=== PATIENT | female | born 1970 | race Caucasian/White ===

== ENCOUNTER → 2016-10-02 | Outpatient (CLI) | payer OTHER | END | disposition home or self-care (01) | LOC: CFH 07:37 → EDSTATUS 08:00 | PROVIDERS: ATTEND Nurse Practitioner Family | DX: Z12.31 Encounter for screening mammogram for malignant neoplasm of breast (principal) | CPT/HCPCS: G0202 ==

== ENCOUNTER 2017-03-26 15:43 | Emergency (ER) | payer OTHER ==
[~2017-03-26] VITALS: Ht 160 cm; Wt 76.5 kg
[2017-03-26 16:27] VITALS: BP 110/70
[2017-03-26] MEDS ORDERED: FLUORESCEIN OPHTHALMIC 1 MG STRIP EACHEYE ONE (17:00)
[2017-03-26] MEDS ORDERED: PROPARACAINE OPHTH 0.5%, 15ML EACHEYE ONE (17:00)
[2017-03-26 18:28] LABS: BASOPHILS # (AUTO) 0.05 x10^3/uL (0-0.1); BASOPHILS % (AUTO) 1 % (0-1); EOSINOPHILS # (AUTO) 0.28 x10^3/uL (0-0.4); EOSINOPHILS % (AUTO) 4 % (1-7); LYMPHOCYTES # (AUTO) 2.96 x10^3/uL (1-3.4); LYMPHOCYTES % (AUTO) 45 % (22-44); MD NO; MEAN CORPUSCULAR HEMOGLOBIN 27.7 pg (27.0-34.8); MEAN CORPUSCULAR HGB CONC 33.3 g/dL (32.4-35.8); MEAN CORPUSCULAR VOLUME 83.1 fL (80-100); MEAN PLATELET VOLUME 7.5 fL (7.4-10.4); MONOCYTES # (AUTO) 0.28 x10^3/uL (0.2-0.8); MONOCYTES % (AUTO) 4 % (2-9); NEUTROPHILS # (AUTO) 3.04 x10^3/uL (1.8-6.8); NEUTROPHILS % (AUTO) 46 % (42-75); PLATELET COUNT 295 x10^3/uL (130-400); RED BLOOD COUNT 4.92 x10^6/uL (3.82-5.3)
[2017-03-26 18:29] LABS: HCT (SEDRATE) 40.6 % (34.6-47.8)
[2017-03-26 18:41] LABS: ALANINE AMINOTRANSFERASE 23 U/L (12-78); ANION GAP 6 mmol/L (5-15); CALCIUM 8.9 mg/dL (8.5-10.1); CHLORIDE 109 mmol/L (98-107); CREATININE 0.93 mg/dL (0.55-1.02)
[2017-03-26 18:43] LABS: ALKALINE PHOSPHATASE 91 U/L (45-117); BILIRUBIN,TOTAL 0.2 mg/dL (0.2-1.0); TOTAL PROTEIN 7.6 g/dL (6.4-8.2)
[2017-03-26] MEDS ORDERED: PRAV20TA2 PO (19:06)
[2017-03-26] MEDS ORDERED: OMEP-110 PO (19:06)
[2017-03-26] MEDS ORDERED: BUPR300T49 PO (19:06)
[2017-03-26] MEDS ORDERED: ASPI-496 PO (19:06)
[2017-03-26] MEDS ORDERED: RANI300T3 PO (19:06)
[2017-03-26] MEDS ORDERED: CLON1TAB23 PO (19:06)
[2017-03-26] MEDS ORDERED: LORazepam 1MG TABLET ONE (19:25)
[2017-03-26] MEDS ORDERED: LORazepam 1MG TABLET PO ONE (19:30)
[2017-03-26] MEDS ORDERED: GADOBUTROL 7.5 MMOL/7.5 ML PFS ONE (20:19)
[2017-03-27] MEDS ORDERED: CETI10CA PO (14:00)
[2017-03-27 16:13] LABS: ANA SCREEN POSITIVE (Negative); ANTI-NUCLEAR ANTIBODY PATTERN SPECKLED
[2017-03-27 16:43] LABS: RAPID PLASMA REAGIN Nonreactive (Nonreactive)
== END 2017-03-26 22:45 | disposition home or self-care (01) ==
LOC: ED 21:41
DX: H46.9 Unspecified optic neuritis (principal); H54.7 Unspecified visual loss
CPT/HCPCS: 36415; 70543; 70553; 80053; 82164; 83520; 85025; 85651; 86038; 86039; 86140; 86592; 96365; 99285; A9585; J2930

== ENCOUNTER 2020-07-20 09:52 | Emergency (ER) | payer OTHER ==
[~2020-07-20] VITALS: Ht 160 cm; Wt 80.0 kg
[~2020-07-20 09:52] MED LIST: ASPI-496 PO; BUPR300T49 PO; CETI10CA PO; CLON1TAB23 PO; OMEP-110 PO; PRAV20TA2 PO; RANI300T3 PO
--- NOTE | 2020-07-20 10:04 | NUR ---
THIS IS A 49 YEAR OLD FEMALE WHO C/O "MY LEFT EYE IS SWOLLEN AND I HAVE PAIN. MY EYE DOCTOR SENT ME IN. YOU GUYS ARE SUPPOSE TO CALL DR CORTEZ FOR A SPECIFIC MRI SCAN"
[2020-07-20] MEDS ORDERED: SODIUM CHLORIDE FLUSH 10ML SYR IVF ONE ×2 (10:30→11:30)
--- NOTE | 2020-07-20 10:38 | NUR ---
REPORT FROM [facility]
[2020-07-20 11:05] LABS: BASOPHILS % (AUTO) 1 % (0-1); EOSINOPHILS % (AUTO) 2 % (1-7); LYMPHOCYTES % (AUTO) 36 % (22-44); MEAN CORPUSCULAR HEMOGLOBIN 28.2 pg (27.0-34.8); MEAN CORPUSCULAR HGB CONC 33.3 g/dL (32.4-35.8); MEAN PLATELET VOLUME 7.4 fL (7.4-10.4); MONOCYTES % (AUTO) 5 % (2-9); NEUTROPHILS % (AUTO) 57 % (42-75); PLATELET COUNT 280 x10^3/uL (130-400); RED BLOOD COUNT 4.64 x10^6/uL (3.82-5.3); RED CELL DISTRIBUTION WIDTH 13.2 % (9.6-15.2)
[2020-07-20 11:07] LABS: MD NO
[2020-07-20 11:08] LABS: ALANINE AMINOTRANSFERASE 47 U/L (12-78); ALBUMIN 3.9 g/dL (3.4-5.0); ANION GAP 6 mmol/L (5-15); CALCIUM 9.1 mg/dL (8.5-10.1); CHLORIDE 104 mmol/L (98-107); CREATININE 0.87 mg/dL (0.55-1.02)
[2020-07-20 11:11] LABS: ALKALINE PHOSPHATASE 87 U/L (45-117); BILIRUBIN,TOTAL 0.3 mg/dL (0.2-1.0); TOTAL PROTEIN 7.2 g/dL (6.4-8.2)
[2020-07-20] MEDS ORDERED: GADOTERATE 10 MMOL/20ML SYR ONE (11:37)
[2020-07-20 12:03] LABS: HCT (SEDRATE) 39.2 % (34.6-47.8)
[2020-07-20 12:31] VITALS: BP 132/68
== END 2020-07-20 12:49 | disposition other institution (70) ==
LOC: ED 11:07
DX: H57.12 Ocular pain, left eye (principal)
CPT/HCPCS: 36415; 70543; 80053; 85025; 85651; 86140; 99285; A9575